=== PATIENT | female | born 1995 | race Caucasian/White ===

== ENCOUNTER 2016-06-21 17:20 | Emergency (ER) | payer OTHER ==
[~2016-06-21] VITALS: Ht 162.6 cm; Wt 59.9 kg
[2016-06-21 18:20] LABS: EOSINOPHIL (%) 0 % (0-5); HEMATOCRIT 28.5 % (36.0-46.0); IMMATURE GRANULOCYTE (%) 0.4 % (0.0-0.7); IMMATURE GRANULOCYTE COUNT 0.6 K/uL; LYMPHOCYTE COUNT 1.4 K/uL (1.0-2.8); MCH 32.9 PG (29.0-34.0); MCHC 35.4 G/DL (30.0-36.0); MCV 92.8 FL (83-99); MEAN PLAT.VOLUME 9.8 uM^3 (9.5-12.4); MONOCYTE (%) 8.6 % (3-12); MONOCYTE COUNT 1.2 K/uL (0-0.8); NEUTROPHIL (%) 81.5 % (45-76); NEUTROPHIL COUNT 11.8 K/uL (1.8-6.4); PLATELET COUNT 191 K/uL (156-360); RBC DIS.WIDTH-CV 12.5 % (11.8-14.6); RBC DIS.WIDTH-SD 40.6 % (39-53); RED BLOOD COUNT 3.07 M/uL (3.80-5.20); WHITE BLOOD COUNT 14.4 K/uL (4.1-10.2)
[2016-06-21 18:30] LABS: CHLORIDE 105 mEq/L (99-109); POTASSIUM 3.6 mEq/L (3.7-5.4); SODIUM 132 mEq/L (136-147)
[2016-06-21 18:32] LABS: GLUCOSE 73 mg/dL (70-99)
[2016-06-21 18:33] LABS: ANION GAP 9 MEQ/L (2-14)
[2016-06-21 18:36] LABS: GFR ESTIMATE (CALCULATED) > 59 mL/min/
[2016-06-21 18:37] LABS: UREA NITROGEN (BUN) 9 mg/dL (9-23)
[2016-06-21 20:59] LABS: ADD MIUA? YES; BILIRUBIN NEGATIVE; BLOOD MODERATE; COLOR YELLOW ((YELLOW)); GLUCOSE (STRIP) NEGATIVE; KETONES TRACE; LEUKOCYTES LARGE; NITRITE POSITIVE; PROTEIN (STRIP) 30; SPECIFIC GRAVITY 1.021 (1.000-1.030)
[2016-06-21] MEDS ORDERED: KEFLEX500 MG PO (21:18)
[2016-06-21 21:25] LABS: EPITHELIAL CELLS 3+; WHITE BLOOD CELLS TNTC /HPF (0-5)
[2016-06-21 21:26] LABS: BACTERIA 3+; CASTS NONE SEEN /LPF; CRYSTALS NONE SEEN; MUCUS 1+; UCUL ADDED? YES
[2016-06-21 21:41] VITALS: BP 99/50
== END 2016-06-21 21:42 | disposition home or self-care (01) ==
LOC: EME 17:20
DX: O23.42 Unspecified infection of urinary tract in pregnancy, second trimester (principal); R05 Cough; Z3A.20 20 weeks gestation of pregnancy
CPT/HCPCS: 80048; 81003; 83605; 85025; 87077; 87086; 87186; 87502; 99281; 99284; J0696

== ENCOUNTER 2016-10-24 02:20 | Inpatient (IN) | payer OTHER ==
[2016-10-24] VITALS (13 sets, daily range): BP systolic 100–126; BP diastolic 55–76
[~2016-10-24 02:20] MED LIST: KEFLEX500 MG PO
[2016-10-24] MEDS ORDERED: IRON325 MG PO (02:49)
[2016-10-24] MEDS ORDERED: PRENATAL VITAM1 EA11 PO (02:49)
[2016-10-24 04:43] LABS: EOSINOPHIL (%) 0.3 % (0-5); HEMATOCRIT 34.6 % (36.0-46.0); IMMATURE GRANULOCYTE (%) 1.2 % (0.0-0.7); IMMATURE GRANULOCYTE COUNT 0.2 K/uL; INSTRUMENT ABS NEUTROPHIL CT 12.1 K/uL; MCH 33.4 PG (29.0-34.0); MCHC 35.5 G/DL (30.0-36.0); MEAN PLAT.VOLUME 10.6 uM^3 (9.5-12.4); MONOCYTE (%) 6.8 % (3-12); MONOCYTE COUNT 1.1 K/uL (0-0.8); NEUTROPHIL (%) 78.4 % (45-76); NEUTROPHIL COUNT 12.1 K/uL (1.8-6.4); PLATELET COUNT 195 K/uL (156-360); RBC DIS.WIDTH-CV 12.3 % (11.8-14.6); RBC DIS.WIDTH-SD 41.7 % (39-53); RED BLOOD COUNT 3.68 M/uL (3.80-5.20); WHITE BLOOD COUNT 15.4 K/uL (4.1-10.2)
[2016-10-24] MEDS ORDERED: IBUPROFEN800 MG PO (07:46)
[2016-10-25 07:30] VITALS: BP 108/58
[2016-10-25] MEDS ORDERED: BREAST PUMP MC (11:45)
== END 2016-10-25 14:00 | disposition home or self-care (01) | DRG 775 ==
LOC: LDRP-OP 02:20 → 2WEST 02:21 → LDRP-OP 12-07 14:21
PROVIDERS: Obstetrics & Gynecology
PROC: 10E0XZZ Delivery of Products of Conception, External Approach (ICD-10-PCS; principal; 2016-10-24)
DX: O80 Encounter for full-term uncomplicated delivery (principal); Z37.0 Single live birth
CPT/HCPCS: 85025; J0595; J7120

== ENCOUNTER 2017-03-14 18:22 | Inpatient (IN) | payer OTHER ==
[~2017-03-14] VITALS: Ht 162.6 cm; Wt 62.0 kg
[~2017-03-14 18:22] MED LIST changes: +BREAST PUMP MC; +IBUPROFEN800 MG PO; +IRON325 MG PO; +PRENATAL VITAM1 EA11 PO
[2017-03-14 19:00] LABS: HEMATOCRIT 35.3 % (36.0-46.0); MCH 31.2 PG (29.0-34.0); MCHC 35.1 G/DL (30.0-36.0); MCV 88.7 FL (83-99); MEAN PLAT.VOLUME 10.5 uM^3 (9.5-12.4); PLATELET COUNT 236 K/uL (156-360); RBC DIS.WIDTH-CV 10.9 % (11.8-14.6); RBC DIS.WIDTH-SD 35.6 % (39-53); RED BLOOD COUNT 3.98 M/uL (3.80-5.20); WHITE BLOOD COUNT 6.6 K/uL (4.1-10.2)
[2017-03-14 19:17] LABS: CHLORIDE 105 mEq/L (99-109); POTASSIUM 3.6 mEq/L (3.7-5.4); SODIUM 140 mEq/L (136-147)
[2017-03-14 19:19] LABS: GLUCOSE 80 mg/dL (70-99)
[2017-03-14 19:20] LABS: ANION GAP 10 MEQ/L (2-14)
[2017-03-14 19:21] LABS: TOTAL BILIRUBIN 4.1 mg/dL (0.0-1.0)
[2017-03-14 19:22] LABS: ALKALINE PHOSPHATASE 121 IU/L (3-129)
[2017-03-14 19:23] LABS: GFR ESTIMATE (CALCULATED) > 59 mL/min/
[2017-03-14 19:24] LABS: UREA NITROGEN (BUN) 10 mg/dL (9-23)
[2017-03-14 19:26] LABS: LIPASE 49 U/L (1.0-51.0)
[2017-03-14 19:33] LABS: QUANTITATIVE HCG < 4.0 MIU/ML
[2017-03-14 19:36] LABS: ADD MIUA? YES; BILIRUBIN MODERATE; BLOOD NEGATIVE; COLOR AMBER ((YELLOW)); GLUCOSE (STRIP) NEGATIVE; KETONES 20; LEUKOCYTES TRACE; NITRITE NEGATIVE; PROTEIN (STRIP) 30
[2017-03-14 19:59] LABS: BACTERIA RARE /HPF; EPITHELIAL CELLS 2+ /HPF; MUCUS TRACE /LPF; RED BLOOD CELLS 0-5 /HPF (0-5); UCUL ADDED? NO; WHITE BLOOD CELLS 0-5 /HPF (0-5)
[2017-03-14 21:16] LABS: ICTOTEST POSITIVE
[2017-03-14 21:55] LABS: DIRECT BILIRUBIN 2.7 mg/dL (0.0-0.3)
[2017-03-15] VITALS (7 sets, daily range): BP systolic 93–119; BP diastolic 48–68
[2017-03-15] MEDS ORDERED: PROTONIX20 MG PO (00:17)
[2017-03-15] MEDS ORDERED: ZOFRAN ODT8 MG PO (00:18)
[2017-03-15] MEDS ORDERED: MICROGESTIN FE1 EAC1 PO (00:18)
[2017-03-15 07:17] LABS: HEMATOCRIT 33.1 % (36.0-46.0); MCH 30.9 PG (29.0-34.0); MCHC 34.1 G/DL (30.0-36.0); MCV 90.4 FL (83-99); MEAN PLAT.VOLUME 11.1 uM^3 (9.5-12.4); PLATELET COUNT 215 K/uL (156-360); RED BLOOD COUNT 3.66 M/uL (3.80-5.20); WHITE BLOOD COUNT 5.9 K/uL (4.1-10.2)
[2017-03-15 07:35] LABS: ALKALINE PHOSPHATASE 116 IU/L (3-129); ANION GAP 11 MEQ/L (2-14); CHLORIDE 108 MEQ/L (99-109); GFR ESTIMATE (CALCULATED) > 59 mL/min/; LIPASE 29 U/L (1.0-51.0); POTASSIUM 3.9 MEQ/L (3.7-5.4); SAMPLE HEMOLYSIS CHECK 0; SAMPLE ICTERIC CHECK 1; SAMPLE LIPEMIA CHECK 0; SODIUM 140 MEQ/L (136-147); UREA NITROGEN (BUN) 8 mg/dL (9-23)
[2017-03-15 07:39] LABS: GLUCOSE 49 mg/dL (70-99); TOTAL BILIRUBIN 4.8 MG/DL (0.0-1.0)
[2017-03-16 03:24] VITALS: BP 103/54
[2017-03-16 05:47] LABS: HEMATOCRIT 33.1 % (36.0-46.0); MCH 31.9 PG (29.0-34.0); MCHC 34.7 G/DL (30.0-36.0); MCV 91.7 FL (83-99); MEAN PLAT.VOLUME 11.2 uM^3 (9.5-12.4); PLATELET COUNT 201 K/uL (156-360); RBC DIS.WIDTH-CV 11.3 % (11.8-14.6); RBC DIS.WIDTH-SD 37.8 % (39-53); RED BLOOD COUNT 3.61 M/uL (3.80-5.20); WHITE BLOOD COUNT 4.5 K/uL (4.1-10.2)
[2017-03-16 06:18] LABS: ALKALINE PHOSPHATASE 109 IU/L (3-129); AMYLASE 41 IU/L (1-118); ANION GAP 11 MEQ/L (2-14); CHLORIDE 109 MEQ/L (99-109); DIRECT BILIRUBIN 1.3 mg/dL (0.0-0.3); GFR ESTIMATE (CALCULATED) > 59 mL/min/; GLUCOSE 58 mg/dL (70-99); LIPASE 25 U/L (1.0-51.0); POTASSIUM 3.5 MEQ/L (3.7-5.4); SAMPLE HEMOLYSIS CHECK 0; SAMPLE ICTERIC CHECK 0; SAMPLE LIPEMIA CHECK 0; SODIUM 142 MEQ/L (136-147); UREA NITROGEN (BUN) 4 mg/dL (9-23)
[2017-03-16 06:21] LABS: TOTAL BILIRUBIN 2.5 MG/DL (0.0-1.0)
[2017-03-16 07:15] VITALS: BP 99/54
[2017-03-16 15:52] VITALS: BP 115/66
[2017-03-16 23:28] VITALS: BP 116/68
[2017-03-17 06:54] VITALS: BP 101/59
[2017-03-17] MEDS ORDERED: PERCOCET 5/31 TABLET PO (09:07)
[2017-03-17 10:15] VITALS: BP 119/69
== END 2017-03-17 12:15 | disposition home or self-care (01) | DRG 419 ==
LOC: EME 18:22 → RME 18:22 → 2EASTP 23:39 → EDOF 23:39 → ENRESERV 23:43 → 2EASTP 03-15 00:36
PROVIDERS: Surgery
PROC: 0FT44ZZ Resection of Gallbladder, Percutaneous Endoscopic Approach (ICD-10-PCS; principal; 2017-03-17)
DX: K80.10 Calculus of gallbladder with chronic cholecystitis without obstruction (principal); J45.909 Unspecified asthma, uncomplicated
CPT/HCPCS: 36415; 74181; 76705; 80053; 81003; 82150; 82247; 82248; 83690; 84702; 85025; 85027; 88304; 99281; 99285; G0378; J0131; J0295; J0330; J1100; J1170; J1885; J2270; J2405; J2550; J2710; J2765; J3010; J7030; J7050; J7120